=== PATIENT | female | born 1995 | race Caucasian/White ===

== ENCOUNTER 2017-12-27 16:00 | Inpatient (IN) | payer OTHER, MEDICAID ==
[2017-12-27] MEDS ORDERED: fentaNYL 100 MCG/2 ML SDV IVPUSH PRN (17:10)
[2017-12-27] MEDS ORDERED: Lidocaine 1% 30 ML SDV INJECT PRN (17:10)
[2017-12-27] MEDS ORDERED: Misoprostol 400 MCG (4 X 100 MCG TAB) RECTAL PRN (17:10)
[2017-12-27] MEDS ORDERED: Tranexamic Acid 1,000 MG in Sodium Chloride 0.9% 100 ML IV PRN (17:10)
[2017-12-27] MEDS ORDERED: Acetaminophen 325 MG Tab PO PRN (17:10)
[2017-12-27] MEDS ORDERED: Sodium Chloride 0.9% 10 ML Syringe FLUSH PRN (17:10)
[2017-12-27] MEDS ORDERED: Lactated Ringers 500 ML IV ONE (17:10)
[2017-12-27] MEDS ORDERED: Carboprost Tromethamine 250 MCG/1 ML Amp IM PRN (17:10)
[2017-12-27] MEDS ORDERED: Methylergonovine 0.2 MG/1 ML Amp IM PRN (17:10)
[2017-12-27] MEDS: Lactated Ringers 1,000 ML IV SCH ×2 (17:30→23:40)
[2017-12-27] MEDS: Ondansetron 4 MG/2 ML SDV IV PRN ×2 (17:41→23:41)
[2017-12-27] MEDS ORDERED: hydrOXYzine HCl 25 MG Tab PO ONE (21:09)
[2017-12-27] MEDS ORDERED: fentaNYL 100 MCG/2 ML SDV ONE (23:51)
[2017-12-27] MEDS ORDERED: EPINEPHrine 1 MG/ML SDV ONE (23:51)
[2017-12-28] MEDS: Lactated Ringers 1,000 ML IV SCH (00:08)
[2017-12-28] MEDS ORDERED: Oxytocin/Normal Saline 30 UNIT/500 ML BAG IV SCH (00:45)
--- NOTE | 2017-12-28 00:45 | PCM.PRNOTE ---
- Free Text/Narrative Note: Requested to provide analgesia to full term patient in severe pain. Upon entering the room, patient is supine in bed complaining of severe abdominal pain and discomfort. Procedure was discussed with patient including adverse outcomes and expectations. Pt consented to analgesia, SAB/IT. Pt placed into a sitting position. Landmarks for SAB/IT were identified and marked. Back was prepped with betadine x3. A sterile, transparent, fenestrated drape was applied. Excess betadine was removed. Using 3 mL of a 1% lidocaine solution, a skin wheel was placed at the L4/L5 interspace. A 24 ga (4 inch) Pencan spinal needle was inserted but unsuccessful. Again, using 2 mL of a 1% lidocaine solution, a skin wheel was placed at the L3/L4 interspace until positive for CSF. Negative for heme or paresthesias. Injected fentanyl 20 mcg, sufentanil 10 mcg, and 10.5 mg of a 0.75% bupivacaine solution with an epi wash. Pt was placed left lateral position for approximately 20 minutes. There were zero complications or adverse outcomes. Will continue to monitor.
--- NOTE | 2017-12-28 02:28 | PN ---
DATE: 12/28/2017 SUBJECTIVE: A 22-year-old 2, para 1, at 36 and 2/7 weeks' gestation, had continued into labor with advancing cervical dilatation. She was placed in a hospital room and allowed to continue to labor spontaneously, once reaching approximately 6 cm with a bulging bag of water. She received an intrathecal for pain management and artificial rupture of membranes was performed without any complications and good return of clear fluid. I was called back to Labor and Delivery 1 hours after because of recurrent deep variables. Cervix is now 7 cm dilated and an intrauterine pressure catheter was placed and amnioinfusion started. Variables have improved significantly. Contractions continued to be about every 3 minutes at this time due to having some difficulties with picking up the heart tracing. Plan for a scalp electrode was made. OBJECTIVE: Vital Signs: Have remained stable, blood pressure is 99/62, pulse of 86, temperature in the 99 range, and patient doing well and pain is well controlled. Cervix is now complete. Head is at +2 position. Baby is believed to be WAYNE and tolerating things quite well. ASSESSMENT: 1. 2, para 1-0-0-1. 2. Active labor and now entering into stage II. 3. Other diagnoses per admission history and physical. PLAN: At this time, the patient is doing well. We are going to let her continue labor down until her boyfriend returns and then anticipate getting her to start pushing and likely have vaginal delivery. Luckily, the baby's head is down low enough that we could perform vacuum-assisted delivery if it was indicated for any sort of intolerance. NICU team happens to be on their way to transfer another patient, and I anticipate would be available soon if we should run into any problems. [facility] /[id number] [place]
[2017-12-28] MEDS ORDERED: Ampicillin 500 MG Vial IVPUSH ONE (02:51)
[2017-12-28] MEDS ORDERED: Gentamicin Pediatric 10 MG/ML 2 ML SDV IV ONE (02:52)
[2017-12-28] MEDS ORDERED: Docusate Sodium 100 MG Cap PO PRN (03:10)
[2017-12-28] MEDS ORDERED: Ibuprofen 800 MG Tab PO PRN (03:10)
[2017-12-28] MEDS ORDERED: Tranexamic Acid 1,000 MG in Sodium Chloride 0.9% 100 ML IV PRN (03:10)
[2017-12-28] MEDS ORDERED: Simethicone 80 MG Tab.Chew PO PRN (03:10)
[2017-12-28] MEDS ORDERED: Measles, Mumps & Rubella Vaccine 0.5 ML SDV SUBCUT ONE (03:10)
[2017-12-28] MEDS ORDERED: Misoprostol 400 MCG (4 X 100 MCG TAB) RECTAL PRN (03:10)
[2017-12-28] MEDS ORDERED: Benzocaine/Menthol 20%-0.5% Spray 56 GM Canister TOP PRN (03:10)
--- NOTE | 2017-12-28 05:11 | DEL ---
DATE: 12/28/2017 PREPROCEDURE DIAGNOSES: 1. A 36 and 2/7 weeks' gestation. 2. labor, suspected due to maternal dehydration. 3. Maternal mild gastroenteritis. 4. History of Chlamydia treated twice during this . 5. Positive tetrahydrocannabinol on urine drug screen at the time of admission. 6. Blood type A positive, rubella nonimmune, group B streptococcus negative. 7. Social risk factors. 8. History of methamphetamine abuse. Denies any use during this . 9. Late care. POSTPROCEDURE DIAGNOSES: 1. A 36 and 2/7 weeks' gestation. 2. labor, suspected due to maternal dehydration. 3. Maternal mild gastroenteritis. 4. History of Chlamydia treated twice during this . 5. Positive tetrahydrocannabinol on urine drug screen at the time of admission. 6. Blood type A positive, rubella nonimmune, group B streptococcus negative. 7. Social risk factors. 8. History of methamphetamine abuse. Denies any use during this . 9. Late care. 10.Recurrent deep variables during labor, likely due to a velamentous cord insertion. BRIEF HISTORY: A 22-year-old female with the above-listed diagnoses, presented to the hospital reporting 7 to 8 episodes of vomiting and only able to drink half a bottle of soda pop since the night before. She was having regular contractions every 4 to 5 minutes and was given 2 L bolus of IV fluids and some Zofran. After that, she was able to eat and drink. However, the contractions continued. Cervix on admission was initially 4 to 5 cm dilated and 4 hours later was 6 cm dilated. She was placed in labor room and allowed to continue laboring on her own. Eventually, intrathecal was placed for pain management, and artificial rupture of membranes performed. Approximately 1 hour later, recurrent deep variables required treatment with amnioinfusion, which did help resolve those, and things had improved. She went on to complete and delivered with only pushing to 1 contraction and then 1 set of pushes without a contraction because of lack of heart tones. See the details below. PROCEDURE IN DETAIL: With the patient in dorsal lithotomy position, delivered a viable female in the WAYNE position over intact perineum. The infant did not have initial good quality cry. Tone was fair. Baby was dried, and nose and mouth were bulb suctioned. Umbilical cord with 3 vessels was doubly clamped and cut, and baby taken immediately over to the warmer for further resuscitation. See notes for those details. Placenta was delivered by gentle cord traction and concomitant uterine massage. Large blood collection noted inside the amniotic membrane with fresh blood consistent with cord starting to avulse. Inspection of the placenta showed it to be intact and premature. The cord insertion itself was approximately 3 cm away from the placental edge. Labia, vagina, and cervix were inspected. There was a small anterior periurethral laceration repaired with a single 4-0 Vicryl suture for hemostasis, which was then achieved. The patient tolerated the procedure well, and there were no other complications. ESTIMATED BLOOD LOSS: 400 mL. FINDINGS: Viable female . scores of 6 and 8. weight 2640 g, 5 pounds 13 ounces. DISPOSITION: Mother to stay in Labor and Delivery room at this time. We will allow her to be discharged later on this morning so that she can travel to [place] to be with her baby as she did not have any significant post delivery or delivery complications, but I would want her to stay at least 6 hours after delivery prior to leaving. [facility] /[id number]
--- NOTE | 2017-12-28 07:47 | HP ---
DATE OF SERVICE: 12/27/2017 CHIEF COMPLAINT: Periodic back pain with gastrointestinal symptoms, concerned about labor. HISTORY OF PRESENT ILLNESS: The patient is a 22-year-old 2, para 1-1-0- 1, currently at 36 and 1/7 weeks' gestation, based on an 18 plus week ultrasound, and a working EDC of 01/23/2018. She reports that last night, she developed symptoms of gastroenteritis in the overnight hours and throughout the day. She has had no diarrhea. No fever or chills. No chest pain or shortness of breath. movement has been good. No vaginal bleeding or leakage of fluid. She has only been able to keep down approximately 1/2 bottle of Sprite. Otherwise, reports feeling of urinary frequency, but not needing to void. No symptoms of preeclampsia. Primarily worried that she is having episodic back pain occurring about every 4 to 5 minutes and she had called the clinic about this and nurse advised that she may be having symptoms of labor and she is to come into the hospital. episode reviewed in [facility]. She is blood type A positive, rubella immune. Was treated for chlamydia in the 2nd and 3rd trimester, most recent test was negative. She has a history of prior vaginal delivery at 37 weeks' gestation. She had some late care this , but overall, no other major problems listed. PAST MEDICAL HISTORY: Near syncope, acne, concussion, anxiety, urinary tract infection, and history of methamphetamine abuse. PAST SURGICAL HISTORY: Foot surgery. FAMILY HISTORY: Sister with cancer. Another sister with irritable bowel syndrome. One sister with no known diseases. Father with depression. Mother with anxiety. Maternal grandmother with arthritis. Cousin with an arrhythmia. Otherwise, family history is negative for seizures, asthma, sudden , heart disease, defects, anesthesia problems, or bleeding problems. Her father is . Other family members are alive. SOCIAL HISTORY: The patient denies any use of alcohol or drugs during this . She is single and living in [place]. MEDICATIONS: vitamins. ALLERGIES: Latex and cat dander. REVIEW OF SYSTEMS: As per the history of present illness. No evidence of violence or other problems in her life. No lower extremity swelling. No blurry vision. PHYSICAL EXAMINATION: Vital Signs: Blood pressure 124/77, pulse of 108, O2 saturations 95% on room air, temperature is 98.3. HEENT: Grossly unremarkable. Neck: Supple without adenopathy and thyroid is not enlarged. Heart: Regular without obvious murmur. Lungs: Clear to auscultation bilaterally. Abdomen: Gravid, soft, and nontender. heart tracing shows baseline heart rate of 150 beats per minute. Minimal variability, but accelerations are noted. [place] shows contractions every 4 to 5 minutes and regular. Speculum exam reveals no blood in the vaginal vault. Wet prep was obtained with a white discharge present. GC chlamydia initially collected, however, we did find a negative results within the last few weeks, but this was discarded. Digital exam, cervix is 4 to 5 cm dilated, 80% effaced, and -3 station. Bag of water is intact. Extremities: No edema, erythema, or tenderness. Skin: Warm, dry, appropriate for race. Neurological: No obvious deficits. ASSESSMENT: 1. uterine contractions with threatened labor. 2. Clinical dehydration secondary to acute gastroenteritis. 3. 2, para 1-0-0-1, currently at 36 and 1/7 weeks' gestation. 4. Blood type is A positive. 5. History of methamphetamine abuse. 6. Anxiety. PLAN: At this time, the patient will be given 2 L of IV fluids and we will continue monitoring hoping that we can knock out the contractions when she is better hydrated. We will add Zofran to medications and hopefully, she can take something orally and labor can be diverted and she can now remain . Possibility of admitting the patient overnight for observation to see how she does and if anything progresses, otherwise, we will be anticipating vaginal delivery. I have counseled the patient that should she go on to delivery, 36 weeks' gestation babies generally do well, however, there is possibility of complications from lung immaturity. The patient did receive steroids between 30 and 31 weeks' gestation for threatened labor at that time. Last cervical exam in the office on Monday was noted to be closed. However, the cervical exam when she was 30 to 31 weeks' gestation was 2 cm dilated. Therefore, we will consider that she may be 4 to 5 cm dilated, yet not in labor. [facility] /[id number]
[2017-12-28] MEDS ORDERED: Ferrous Sulfate 325 MG Tab PO SCH (08:00)
[2017-12-28] MEDS ORDERED: Prenatal Multivitamin with Calcium/Folic Acid/Iron Tab PO SCH (09:00)
[2017-12-28] MEDS ORDERED: Diphtheria,Pertussis(Acell),Tetanus Vaccine 0.5 ML SDV IM ONE (10:15)
[2017-12-28] MEDS ORDERED: fentaNYL 100 MCG/2 ML SDV ITHECAL ONE (11:09)
[2017-12-28] MEDS ORDERED: EPINEPHrine 1 MG/ML SDV ONE (11:09)
== END 2017-12-28 11:10 | disposition home or self-care (01) | DRG 775 ==
LOC: DL.OBCHECK 16:00 → DL.OB 21:33 → OBSVTOIN 12-28 02:18
PROVIDERS: ADMIT Family Medicine; ATTEND Family Medicine
PROC: 10E0XZZ Delivery of Products of Conception, External Approach (ICD-10-PCS; principal; 2017-12-28)
PROC: 3E0E7GC Introduction of Other Therapeutic Substance into Products of Conception, Via Natural or Artificial Opening (ICD-10-PCS; 2017-12-28)
PROC: 10907ZC Drainage of Amniotic Fluid, Therapeutic from Products of Conception, Via Natural or Artificial Opening (ICD-10-PCS; 2017-12-28)
PROC: 00HU33Z Insertion of Infusion Device into Spinal Canal, Percutaneous Approach (ICD-10-PCS; 2017-12-28)
PROC: 3E0R3BZ Introduction of Anesthetic Agent into Spinal Canal, Percutaneous Approach (ICD-10-PCS; 2017-12-28)
PROC: 0UQMXZZ Repair Vulva, External Approach (ICD-10-PCS; 2017-12-28)
DX: O99.62 Diseases of the digestive system complicating childbirth (principal); K92.89 Other specified diseases of the digestive system; K52.9 Noninfective gastroenteritis and colitis, unspecified; E86.0 Dehydration; O60.13X0 Preterm labor second trimester with preterm delivery third trimester, not applicable or unspecified; Z37.0 Single live birth; Z3A.36 36 weeks gestation of pregnancy; O99.324 Drug use complicating childbirth; F12.90 Cannabis use, unspecified, uncomplicated; F15.90 Other stimulant use, unspecified, uncomplicated; O76 Abnormality in fetal heart rate and rhythm complicating labor and delivery; O71.82 Other specified trauma to perineum and vulva
CPT/HCPCS: 36415; 51701; 59300; 59409; 80305; 81001; 85027; 87210; 90471; 90707; 90715; A9270-GY; J0171; J2405; J2590; J3010; J7120

== ENCOUNTER 2020-10-06 22:42 | Emergency (ER) | payer OTHER ==
[2020-10-06] MEDS ORDERED: Sodium Chloride 0.9% 1,000 ML IV ONE (23:05)
--- NOTE | 2020-10-06 23:05 | EDM.PDOC ---
ED HPI GENERAL MEDICAL PROBLEM - General Chief Complaint: Genitourinary Problem Stated Complaint: AMBULANCE Time Seen by Provider: 10/06/20 22:50 Source of Information: Reports: Patient History Limitations: Reports: No Limitations - History of Present Illness INITIAL COMMENTS - FREE TEXT/NARRATIVE: This 25 yo female patient was brought to the ED by [facility] due to a headache and ge neralized kidney pain. The patient reports she has been having blood in her urine for the past 2 weeks. The patient has a history of urinary tract infections. The patient did get seen in [facility] today, diagnosed with a UTI, given IM Toradol/Rocephin at the clinic, started on antibiotics and was given IV fluids. The patient reports she has not take any Tylenol or ibuprofen. The patient reports she was given Toradol at 1400 today. Onset: Unknown/Unsure Duration: Week(s):, Constant, Getting Worse Location: Reports: Head, Abdomen Quality: Reports: Other Severity: Severe Improves with: Reports: None Worsens with: Reports: None Context: Reports: Other Associated Symptoms: Reports: No Other Symptoms Headache Pain Score (Numeric/FACES): 8 - Related Data Allergies Allergy/AdvReac Type Severity Reaction Status Date / Time fentanyl Allergy Unknown Hives Verified 10/06/20 22:51 latex Allergy Rash Verified 10/06/20 22:51 Home Meds: Home Meds Ferrous Gluconate 1 tab PO DAILY 07/14/19 [History] Pnv No.95/Ferrous Fum/Folic AC [ Caplet] 1 tab PO DAILY 07/14/19 [History] Acetaminophen [Tylenol] 650 mg PO Q6H PRN tablet 07/15/19 [Rx] Benzocaine/Menthol [Dermoplast Pain Relief Graff] 1 spray TOP ASDIRECTED PRN canister 07/15/19 [Rx] Docusate Sodium [Colace] 100 mg PO BID PRN cap 07/15/19 [Rx] Hydrocortisone Acetate [Anucort-HC] 25 mg RECTAL BID PRN supp 07/15/19 [Rx] Ibuprofen [Motrin] 600 mg PO Q6H PRN tablet 07/15/19 [Rx] Lanolin [Lansinoh HPA] 1 applic TOP ASDIRECTED PRN tube 07/15/19 [Rx] Magnesium Hydroxide [Milk of Magnesia] 30 ml PO BEDTIME PRN cup 07/15/19 [Rx] ania Kilpatrick [Tucks] 1 pad TOP ASDIRECTED PRN pad 07/15/19 [Rx] Past Medical History - Past Health History Medical/Surgical History: Denies Medical/Surgical History HEENT History: Reports: None Cardiovascular History: Reports: Other (See Below) Other Cardiovascular History: neuro-cardiogenic syncope- worked up with holter, ecg, and windows security analyst who did not advise removing from sports but encouraged continued activity and encouraged adequate fluid intake and extra salt. Respiratory History: Reports: Other (See Below) Other Respiratory History: pt states she has asthma but no indication of this in PMH Gastrointestinal History: Reports: GERD Genitourinary History: Reports: STD, UTI, Recurrent [employer] History: Reports: , Other (See Below) Other [employer] History: bv and chlamydia tx in - Neurological History: Reports: Migraines Psychiatric History: Reports: Addiction, Anxiety Endocrine/Metabolic History: Reports: None Immunologic History: Reports: None Oncologic (Cancer) History: Reports: None Dermatologic History: Reports: Other (See Below) - Past Surgical History Musculoskeletal Surgical History: Reports: Other (See Below) Other Musculoskeletal Surgeries/Procedures:: bilat foot surgery for laceration Dermatological Surgical History: Reports: Other (See Below) Social & Family History - Family History Family Medical History: No Pertinent Family History Psychiatric: Reports: Depression - Tobacco Use Tobacco Use Status *Q: Never Tobacco User - Caffeine Use Caffeine Use: Reports: Soda - Recreational Drug Use Recreational Drug Use: No - Sexual History Sexual History: Reports: Sexually Active, Vaginal [place], Other (See Below) () - Living Situation & Occupation Living situation: Reports: Single Occupation: Other (incarcerated) ED ROS GENERAL - Review of Systems Review Of Systems: Comprehensive ROS is negative, except as noted in HPI. ED EXAM, RENAL/ - Physical Exam Exam: See Below Exam Limited By: No Limitations General Appearance: Alert, WD/WN, Moderate Distress Eye Exam: Bilateral Eye: EOMI, Normal Inspection, PERRL Ears: Normal External Exam, Normal Canal, Hearing Grossly Normal, Normal TMs Nose: Normal Inspection, Normal Mucosa, No Blood Throat/Mouth: Normal Inspection, Normal Lips, Normal Teeth, Normal Gums, Normal Oropharynx, Normal Voice, No Airway Compromise Head: Atraumatic, Normocephalic Neck: Normal Inspection, Supple, Non-Tender, Full Range of Motion Respiratory/Chest: No Respiratory Distress Cardiovascular: Normal Peripheral Pulses GI/Abdominal: Normal Bowel Sounds, Soft, No Organomegaly, No Distention, No Abnormal Bruit, No Mass, Pelvis Stable, Tender (throughout ) (Female) Exam: Deferred Rectal (Female) Exam: Deferred Back Exam: CVA Tenderness (L), CVA Tenderness (R) Extremities: Normal Inspection, Normal Range of Motion, Non-Tender, Normal Capillary Refill, No Pedal Edema Neurological: Alert, Oriented, CN II-XII Intact, Normal Cognition, Normal Gait, Normal Reflexes, No Motor/Sensory Deficits Psychiatric: Normal Affect, Normal Mood Skin Exam: Warm, Dry, Intact, Normal Color, No Rash Lymphatic: No Adenopathy Course - Vital Signs Last Recorded V/S: Last Vital Signs Temp 38.2 C H 10/06/20 22:51 Pulse 103 H 10/06/20 22:51 Resp 18 10/06/20 22:51 BP 107/61 10/06/20 22:51 Pulse Ox 97 10/06/20 22:51 - Orders/Labs/Meds Orders: Active Orders 24 hr Category Date Time Status CULTURE BLOOD [BC] Stat Lab 10/06/20 23:00 Received CULTURE URINE [RM] Stat Lab 10/06/20 23:16 Received Labs: Laboratory Tests 10/06/20 10/06/20 10/06/20 Range/Units 23:00 23:00 23:00 WBC 18.2 H (5.0-10.0) 10^3/uL RBC 4.20 (4.2-5.4) 10^6/uL Hgb 12.1 D (12.0-16.0) g/dL Hct 35.8 L (37.0-47.0) % MCV 85.2 D (80-100) fL MCH 28.8 (27.0-34.0) pg MCHC 33.8 (33.0-35.0) g/dL Plt Count 254 (150-450) 10^3/uL Neut % (Auto) 79.7 H (42.2-75.2) % Lymph % (Auto) 6.4 L (20.5-50.1) % [place] % (Auto) 13.4 H (2-8) % Eos % (Auto) 0.3 L (1.0-3.0) % Baso % (Auto) 0.2 (0.0-1.0) % Sodium 135 L (138-146) mmol/L Potassium 3.1 L (3.5-4.9) mmol/L Chloride 101 (98-109) mmol/L Carbon Dioxide 24 (24-29) mmol/L Anion Gap 13.1 H (7-13) mEq/L BUN 8 (7-18) mg/dL Creatinine 0.74 (0.55-1.02) mg/dL Est Cr Clr Drug Dosing TNP Estimated GFR (MDRD) > 60 BUN/Creatinine Ratio 10.8 (No establ ref range) Glucose 131 H (74-99) mg/dL Lactic Acid 1.0 (0.4-2.0) mmol/L Calcium 7.7 L (8.5-10.1) mg/dL Total Bilirubin 0.9 (0.2-1.0) mg/dL AST 21 (15-37) U/L ALT 128 H (14-59) U/L Alkaline Phosphatase 77 (46-116) U/L Total Protein 6.0 L (6.4-8.2) g/dL Albumin 2.6 L (3.4-5.0) g/dL Globulin 3.4 Albumin/Globulin Ratio 0.76 Urine Color (YELLOW) Urine Appearance (CLEAR) Urine pH (5.0-9.0) Ur Specific Henry (1.005-1.030) Urine Protein (NEGATIVE) Urine Glucose (UA) (NEGATIVE) Urine Ketones (NEGATIVE) Urine Occult Blood (NEGATIVE) Urine Nitrite (NEGATIVE) Urine Bilirubin (NEGATIVE) Urine Urobilinogen (0.2-1.0) mg/dL Ur Leukocyte Esterase (NEGATIVE) Urine RBC /HPF Urine WBC (0-5/HPF) /HPF Ur Epithelial Cells (NOT SEEN) /HPF Amorphous Sediment (NOT SEEN) /HPF Urine Bacteria (0-FEW/HPF) /HPF Granular Casts (Auto) Urine Mucus (NOT SEEN) /LPF Urine HCG, Qual Urine Opiates Screen (NEGATIVE) Ur Oxycodone Screen (NEGATIVE) Urine Methadone Screen (NEGATIVE) Ur Barbiturates Screen (NEGATIVE) U Tricyclic Antidepress (NEGATIVE) Ur Phencyclidine Scrn (NEGATIVE) Ur Amphetamine Screen (NEGATIVE) U Methamphetamines Scrn (NEGATIVE) Urine MDMA Screen (NEGATIVE) U Benzodiazepines Scrn (NEGATIVE) Urine Cocaine Screen (NEGATIVE) U Marijuana (THC) Screen (NEGATIVE) 10/06/20 10/06/20 10/06/20 Range/Units 23:16 23:16 23:16 WBC (5.0-10.0) 10^3/uL RBC (4.2-5.4) 10^6/uL Hgb (12.0-16.0) g/dL Hct (37.0-47.0) % MCV (80-100) fL MCH (27.0-34.0) pg MCHC (33.0-35.0) g/dL Plt Count (150-450) 10^3/uL Neut % (Auto) (42.2-75.2) % Lymph % (Auto) (20.5-50.1) % [place] % (Auto) (2-8) % Eos % (Auto) (1.0-3.0) % Baso % (Auto) (0.0-1.0) % Sodium (138-146) mmol/L Potassium (3.5-4.9) mmol/L Chloride (98-109) mmol/L Carbon Dioxide (24-29) mmol/L Anion Gap (7-13) mEq/L BUN (7-18) mg/dL Creatinine (0.55-1.02) mg/dL Est Cr Clr Drug Dosing Estimated GFR (MDRD) BUN/Creatinine Ratio (No establ ref range) Glucose (74-99) mg/dL Lactic Acid (0.4-2.0) mmol/L Calcium (8.5-10.1) mg/dL Total Bilirubin (0.2-1.0) mg/dL AST (15-37) U/L ALT (14-59) U/L Alkaline Phosphatase (46-116) U/L Total Protein (6.4-8.2) g/dL Albumin (3.4-5.0) g/dL Globulin Albumin/Globulin Ratio Urine Color [place] (YELLOW) Urine Appearance Slightly cloudy (CLEAR) Urine pH 5.5 (5.0-9.0) Ur Specific [place] 1.020 (1.005-1.030) Urine Protein 100 H (NEGATIVE) Urine Glucose (UA) Negative (NEGATIVE) Urine Ketones Negative (NEGATIVE) Urine Occult Blood Moderate H (NEGATIVE) Urine Nitrite Positive H (NEGATIVE) Urine Bilirubin Negative (NEGATIVE) Urine Urobilinogen 2.0 H (0.2-1.0) mg/dL Ur Leukocyte Esterase Small H (NEGATIVE) Urine RBC 5-10 H /HPF Urine WBC 40-50 H (0-5/HPF) /HPF Ur Epithelial Cells Few (NOT SEEN) /HPF Amorphous Sediment Few (NOT SEEN) /HPF Urine Bacteria Few (0-FEW/HPF) /HPF Granular Casts (Auto) Few Urine Mucus Rare (NOT SEEN) /LPF Urine HCG, Qual Negative Urine Opiates Screen Positive H (NEGATIVE) Ur Oxycodone Screen Negative (NEGATIVE) Urine Methadone Screen Negative (NEGATIVE) Ur Barbiturates Screen Negative (NEGATIVE) U Tricyclic Antidepress Negative (NEGATIVE) Ur Phencyclidine Scrn Negative (NEGATIVE) Ur Amphetamine Screen Positive H (NEGATIVE) U Methamphetamines Scrn Positive H (NEGATIVE) Urine MDMA Screen Negative (NEGATIVE) U Benzodiazepines Scrn Negative (NEGATIVE) Urine Cocaine Screen Negative (NEGATIVE) U Marijuana (THC) Screen Positive H (NEGATIVE) Meds: Medications Discontinued Medications Generic Name Dose Route Start Last Admin Trade Name Freq PRN Reason Stop Dose Admin Sodium Chloride 1,000 mls @ 999 mls/hr 10/06/20 23:05 10/06/20 23:15 Normal Saline IV 10/07/20 00:05 999 mls/hr .BOLUS ONE Administration Ketorolac Tromethamine 30 mg 10/06/20 23:46 10/06/20 23:51 Toradol IVPUSH 10/06/20 23:47 30 mg ONETIME ONE Administration - Re-Assessments/Exams Free Text/Narrative Re-Assessment/Exam: 10/07/20 01:00 The patient was advised of the lab results (negative , + UDS, hematuria). A CT scan of the abdomen and pelvis was ordered. The patient admits to using meth over the weekend. Departure - Departure Time of Disposition: 02:01 Disposition: Home, Self-Care 01 Condition: Fair Clinical Impression: Pyelonephritis - Discharge Information *PRESCRIPTION DRUG MONITORING PROGRAM REVIEWED*: Not Applicable *COPY OF PRESCRIPTION DRUG MONITORING REPORT IN PATIENT LUCIO: Not Applicable Instructions: Pyelonephritis, Adult, [id number] Forms: ED Department Discharge Care Plan Goals: The patient was advised of the examination, lab and CT results during the visit. The patient was given IV fluids and IV Toradol while in the ED. The patient was encouraged to take her medications as prescribed. The patient may take Tylenol or ibuprofen as directed for temporary symptom relief. If the patient has any additional symptoms or concerns, the patient should either return to the emergency department or visit her primary care facility. Sepsis Event Note (ED) - Evaluation Sepsis Screening Result: No Definite Risk - Focused Exam Vital Signs: Vital Signs Temp Pulse Resp BP Pulse Ox 10/06/20 22:51 38.2 C H 103 H 18 107/61 97 - My Orders Last 24 Hours: My Active Orders 10/06/20 23:00 CULTURE BLOOD [BC] Stat 10/06/20 23:16 CULTURE URINE [RM] Stat - Assessment/Plan Last 24 Hours: My Active Orders 10/06/20 23:00 CULTURE BLOOD [BC] Stat 10/06/20 23:16 CULTURE URINE [RM] Stat
[2020-10-06] MEDS ORDERED: Ketorolac 30 MG/ML SDV IVPUSH ONE (23:46)
[2020-10-07 00:07] LABS: ANION GAP 13.1 mEq/L (7-13)
[2020-10-07 00:08] LABS: CHLORIDE,CL 101 mmol/L (98-109); SODIUM,NA 135 mmol/L (138-146)
--- NOTE | 2020-10-07 01:51 | CT ---
PROCEDURE INFORMATION: Exam: CT Abdomen And Pelvis Without Contrast Exam date and time: 10/07/2020 1:24 AM Age: 25 years old Clinical indication: Other: Abdominal pain with hematuria TECHNIQUE: Imaging protocol: Computed tomography of the abdomen and pelvis without contrast. Radiation optimization: All CT scans at this facility use at least one of these dose optimization techniques: automated exposure control; mA and/or kV adjustment per patient size (includes targeted exams where dose is matched to clinical indication); or iterative reconstruction. COMPARISON: No relevant prior studies available. FINDINGS: Liver: Normal. No mass. Gallbladder and bile ducts: Normal. No calcified stones. No ductal dilation. Pancreas: Normal. No ductal dilation. Spleen: Normal. No splenomegaly. Adrenal glands: Normal. No mass. Kidneys and ureters: Bilateral uroepithelial thickening involving both kidneys as well as both ureters suggestive of acute bilateral pyelonephritis with ureteritis. No evidence for renal calculi or obstructive uropathy. Stomach and bowel: Unremarkable. No obstruction. No mucosal thickening. Appendix: No evidence of appendicitis. Intraperitoneal space: Small free fluid in the pelvis. Vasculature: Unremarkable. No abdominal aortic aneurysm. Lymph nodes: Unremarkable. No enlarged lymph nodes. Urinary bladder: Unremarkable as visualized. Reproductive: Unremarkable as visualized. Bones/joints: Unremarkable. No acute fracture. Soft tissues: Unremarkable. IMPRESSION: 1. Bilateral uroepithelial thickening involving both kidneys as well as both ureters suggestive of acute bilateral pyelonephritis with ureteritis. Please correlate with urinalysis as well as symptomatology. 2. No evidence for renal calculi or obstructive uropathy. 3. Small free fluid in the pelvis.
[2020-10-07] MEDS ORDERED: Acetaminophen 325 MG Tab PO ONE (02:04)
[2020-10-07] MEDS ORDERED: Acetaminophen 325 MG Tab ONE (02:09)
== END 2020-10-07 02:14 | disposition home or self-care (01) ==
LOC: DL.ED 22:42
DX: N12 Tubulo-interstitial nephritis, not specified as acute or chronic (principal); J45.909 Unspecified asthma, uncomplicated; Z88.4 Allergy status to anesthetic agent; Z91.040 Latex allergy status
CPT/HCPCS: 36415; 74176; 80053; 80305; 81001; 81025; 83605; 85025; 87040; 87086; 96374; 99284; A9270; J1885; J7030; 99283

== ENCOUNTER 2021-03-09 22:31 | Emergency (ER) | payer OTHER | END 2021-03-09 23:08 | disposition left against medical advice (07) | LOC: DL.ED 22:31 | DX: O99.891 Other specified diseases and conditions complicating pregnancy (principal); Z53.21 Procedure and treatment not carried out due to patient leaving prior to being seen by health care provider ==

== ENCOUNTER 2024-09-17 15:59 | Emergency (ER) | payer MEDICAID, OTHER ==
[2024-09-17] MEDS: Ondansetron 4 MG/2 ML SDV IVPUSH ONE (16:04)
[2024-09-17] MEDS: Sodium Chloride 0.9% 1,000 ML IV ONE (16:04)
[2024-09-17 16:10] LABS: BASOPHILS PERCENT AUTO 0.2 % (0.0-1.0); EOSINOPHILS PERCENT AUTO 0.3 % (1.0-3.0); HEMATOCRIT 43.1 % (37.0-47.0); HEMOGLOBIN 14.4 g/dL (12.0-16.0); LYMPHOCYTES PERCENT AUTO 11.2 % (20.5-50.1); MEAN CORPUSCULAR HGB CONC 33.4 g/dL (33.0-35.0); MEAN CORPUSCULAR VOLUME 83.9 fL (80-100); MONOCYTES PERCENT AUTO 3.7 % (2-8); NEUTROPHILS PERCENT AUTO 84.6 % (42.2-75.2); PLATELET COUNT,PLT 339 10^3/uL (150-450); RED BLOOD CELL COUNT 5.14 10^6/uL (4.2-5.4)
[2024-09-17 16:31] LABS: A/G RATIO 1.1; ALANINE AMINOTRANSFERASE,ALT 18 U/L (14-59); ALKALINE PHOSPHATASE 77 U/L (46-116); ANION GAP 14.5 mEq/L (7-13); ASPARTATE AMNIOTRANSFERASE,AST 12 U/L (15-37); BILIRUBIN TOTAL 1.2 mg/dL (0.2-1.0); BLOOD UREA NITROGEN,BUN 13 mg/dL (7-18); CALCIUM 9.7 mg/dL (8.5-10.1); CARBON DIOXIDE,CO2 24 mmol/L (21-32); CHLORIDE,CL 102 mmol/L (98-107); CREATININE 0.62 mg/dL (0.55-1.02); GLUCOSE RANDOM 114 mg/dL (70-99); LIPASE 29 U/L (16-77); POTASSIUM,K 3.5 mmol/L (3.5-5.1); PROTEIN TOTAL,TP 7.7 g/dL (6.4-8.2); SODIUM,NA 137 mmol/L (136-145)
[2024-09-17 16:34] LABS: LACTIC ACID 1.1 mmol/L (0.4-2.0)
[2024-09-17 16:39] LABS: ESTIMATED GFR 124 mL/min (>=60)
== END 2024-09-17 17:38 | disposition home or self-care (01) ==
LOC: DL.ED 15:59
DX: F11.20 Opioid dependence, uncomplicated (principal); J45.909 Unspecified asthma, uncomplicated; Z88.5 Allergy status to narcotic agent; Z91.040 Latex allergy status; Z79.899 Other long term (current) drug therapy
CPT/HCPCS: 36415; 80053; 80307; 83605; 83690; 85025; 96361; 96374; 99284-25; J2405; J7030